=== PATIENT | female | born 1990 | race African-American/Black ===

== ENCOUNTER 2017-06-09 22:25 | Emergency (ER) | payer BC ==
[~2017-06-09] VITALS: Ht 170.2 cm; Wt 120.7 kg
[~2017-06-09 22:25] MED LIST: BACTRIM DS TAB1 EACH PO; CIPROFLOXACIN500 M1 PO; IBUPROFEN 600600 M1 PO; NORCO 5-325 TA1 EACH PO
[2017-06-09 22:26] VITALS: BP 161/103
[2017-06-09] MEDS ORDERED: ALDACTONE25 MG PO (22:30)
[2017-06-09] MEDS ORDERED: DIET PILL PO (22:31)
[2017-06-09] MEDS ORDERED: PHENTERMINE HCL15 MG PO (23:41)
[2017-06-09] MEDS ORDERED: ZYRTEC10 M5 PO (23:54)
[2017-06-09] MEDS ORDERED: PREDNISONE 20 M20 MG PO (23:54)
== END 2017-06-10 00:34 | disposition home or self-care (01) ==
LOC: ER 22:25
DX: R21 Rash and other nonspecific skin eruption (principal); T50.995A Adverse effect of other drugs, medicaments and biological substances, initial encounter; Y92.89 Other specified places as the place of occurrence of the external cause

== ENCOUNTER 2020-08-25 18:32 | Emergency (ER) | payer BC ==
[~2020-08-25] VITALS: Ht 170.2 cm; Wt 129.3 kg
[~2020-08-25 18:32] MED LIST changes: +ALDACTONE25 MG PO; +DIET PILL PO; +PHENTERMINE HCL15 MG PO; +PREDNISONE 20 M20 MG PO; +ZYRTEC10 M5 PO
[2020-08-25 19:18] LABS: URINE BILIRUBIN NEGATIVE (Negative); URINE BLOOD 1+ (Negative); URINE CLARITY CLEAR; URINE COLOR YELLOW; URINE GLUCOSE-RANDOM* NEGATIVE (Negative); URINE KETONES NEGATIVE (Negative); URINE LEUKOCYTES-REFLEX NEGATIVE (Negative); URINE NITRITE-REFLEX NEGATIVE (Negative); URINE PROTEIN (DIPSTICK) NEGATIVE (Negative); URINE SPECIFIC GRAVITY 1.025 (1.005-1.035); URINE UROBILINOGEN 0.2 E.U./dl (0.2-1.0)
[2020-08-25 19:30] LABS: CASTS None Seen /LPF (None Seen); SQUAMOUS 4-10 Moderate /LPF (0-3)
[2020-08-25 19:31] LABS: URINE RBC 3-10 Few /HPF (NONE SEEN); URINE WBC-REFLEX 0-5 Rare /HPF (0-5)
[2020-08-25 19:32] LABS: BACTERIA-REFLEX 1-9 Few /HPF (None Seen); CRYSTALS None Seen /LPF (None Seen)
[2020-08-25 20:55] LABS: ABSOLUTE NEUTROPHILS 8.2 thou/uL (1.4-8.2); BASOPHILS 0.6 % (0.0-2.0); EOSINOPHILS 0.9 % (0.0-3.0); HEMATOCRIT 33.2 % (37.0-47.0); HEMOGLOBIN 10.4 gm/dL (12.0-15.0); LYMPHOCYTES 19.5 % (24.0-44.0); MCH 25.2 pg (26.0-34.0); MCHC 31.5 g/dL (28.0-37.0); MCV 80.2 fL (80.0-100.0); MONOCYTES 6.3 % (1.0-8.0); PLATELET COUNT 295 thou/uL (150-400); POLYS 72.7 % (36.0-66.0); RBC 4.14 mil/uL (4.20-5.00); RDW 16.1 % (10.5-14.5); WBC 11.2 thou/uL (4.0-11.0)
[2020-08-25 21:07] LABS: CALCIUM 8.2 mg/dL (8.5-10.1); CREATININE 0.8 mg/dL (0.6-1.0); POTASSIUM 5.1 mmol/L (3.5-5.1)
[2020-08-25 21:11] LABS: ALBUMIN 3.3 g/dL (3.4-5.0); TOTAL BILIRUBIN 0.5 mg/dL (0.2-1.0); TOTAL PROTEIN 7.3 g/dL (6.4-8.2)
[2020-08-25] MEDS ORDERED: CIPROFLOXACIN500 M1 PO (21:51)
[2020-08-25] MEDS ORDERED: FLAGYL500 M1 PO (21:51)
[2020-08-25 22:04] VITALS: BP 114/90
== END 2020-08-25 22:24 | disposition home or self-care (01) ==
LOC: ER 18:32
PROVIDERS: Emergency Medicine
DX: K57.32 Diverticulitis of large intestine without perforation or abscess without bleeding (principal); Z79.899 Other long term (current) drug therapy; Z72.89 Other problems related to lifestyle; Z88.8 Allergy status to other drugs, medicaments and biological substances